=== PATIENT | female | born 1955 | race Caucasian/White ===

== ENCOUNTER 2017-03-09 21:17 | Outpatient (CLI) ==
[2017-03-09 21:36] LABS: BASOPHILS % (AUTO) 0.3 % (0.0-3.0); EOSINOPHILS # (AUTO) 0.1 K/ul (0.0-0.7); EOSINOPHILS % (AUTO) 1.1 % (0.0-7.0); HEMOGLOBIN 10.1 g/dl (12.0-16.0); IMMATURE GRANULOCYTE % (AUTO) 0.2 % (0.0-5.0); LYMPHOCYTES # (AUTO) 2.9 K/uL (0.60-3.4); LYMPHOCYTES % (AUTO) 45.2 (10.0-50.0); MEAN CORPUSCULAR HGB CONC 32.6 (31.8-35.4); MEAN CORPUSCULAR VOLUME 98.1 fl (81.0-99.0); MONOCYTES # (AUTO) 0.4 K/uL (0.4-2.0); NEUTROPHILS % (AUTO) 47.2; PLATELET COUNT 284 10^3/uL (140-440); RED BLOOD COUNT 3.16 10^6/ul (4.20-5.40)
[2017-03-09 21:38] LABS: BILIRUBIN,URINE Negative (NEGATIVE); KETONES,URINE Negative (NEGATIVE); LEUKOCYTE ESTERASE ,URINE Trace (NEGATIVE); NITRITE,URINE Negative (NEGATIVE); PROTEIN,URINE 3+ (NEGATIVE); URINE, BLOOD 2+ (NEGATIVE)
[2017-03-09 21:44] LABS: ADD URINE MICROSCOPIC YES
[2017-03-09 21:47] LABS: BACTERIA,URINE TRACE (NOT PRESENT)
[2017-03-09 21:56] LABS: ALANINE AMINOTRANSFERASE 17 U/L (12-78); ALBUMIN 3.1 g/dL (3.4-5.0); ALBUMIN/GLOBULIN RATIO 0.84; ALKALINE PHOSPHATASE 70 U/L (53-141); ANION GAP 16.3; ASPARTATE AMINO TRANSFERASE 20 U/L (15-37); BILIRUBIN,TOTAL 0.34 mg/dL (0.00-1.20); BLOOD UREA NITROGEN 24 mg/dL (7-18); BUN/CREATININE RATIO 17.02; CALCIUM 9.2 mg/dL (8.2-10.2); CARBON DIOXIDE 24 mmol/L (23-31); CHLORIDE 102 mmol/L (98-107); CHOL/HDL RATIO 5.5 (4.5-5.5); CHOLESTEROL 257 mg/dL (0-200); CREATININE 1.41 mg/dL (0.60-1.30); GLUCOSE 100 mg/dL (82-115); HDL CHOLESTEROL 47 mg/dL (35-80); POTASSIUM 4.3 mmol/L (3.5-5.10); SODIUM 138 mmol/L (136-145); TOTAL PROTEIN 6.8 g/dL (5.8-8.1); TRIGLYCERIDES 456 mg/dL (30-150)
== END 2017-03-09 21:18 | disposition home or self-care (01) ==
LOC: LAB 21:17
PROVIDERS: ATTEND General Practice
DX: E55.9 Vitamin D deficiency, unspecified (principal); E78.5 Hyperlipidemia, unspecified; I10 Essential (primary) hypertension
CPT/HCPCS: 36415; 80053; 80061; 81001; 85025

== ENCOUNTER 2017-10-11 12:38 | Outpatient (CLI) | END 2017-10-11 12:39 | disposition home or self-care (01) | LOC: FCC-LAB 12:38 | PROVIDERS: ATTEND General Practice | DX: E78.5 Hyperlipidemia, unspecified (principal); I10 Essential (primary) hypertension; E55.9 Vitamin D deficiency, unspecified; D64.9 Anemia, unspecified; N18.3 Chronic kidney disease, stage 3 (moderate) | CPT/HCPCS: 36415; 80053; 80061; 81001; 85025 ==

== ENCOUNTER 2017-12-11 14:51 | Outpatient (CLI) | END 2017-12-11 14:52 | disposition home or self-care (01) | LOC: LAB 14:51 → CAR 14:52 | PROVIDERS: ATTEND General Practice | DX: R00.0 Tachycardia, unspecified (principal); I49.9 Cardiac arrhythmia, unspecified | CPT/HCPCS: 93005; 93010 ==

== ENCOUNTER 2018-01-25 06:35 | Outpatient (CLI) ==
--- NOTE | 2018-01-25 09:57 | ECHOSTRESS ---
Date of Exam: 01/25/18 Ordering Physician: DR. LACHELLE RASHEED Reason for Echo: SOB, FATIGUE, CAD, HEART VALVE DISEASE, STRESS TEST--NO ISCHEMIA M-Mode Normal Adult Results LV Dimensions Normal Adult Results AoV Opening excursions >1.6 LVEDD-base- 3.5-5.8 Ao root dimensions 2.0-3.7 LVESD-base- 3.1-4.6 L. Atrium dimensions 1.9-3.8 Post. Wall thickness 0.8-1.1 IV septum (thickness) 0.7-1.2 Post. Wall excursion 0.72-1.3 Septal motion Systolic motion R. Ventricular cavity 1.5-2.0 LVEF 60% Paradoxical septal wall motion 2-D: HYPOKINETIC LEFT VENTRICLE AT REST AND POST EXERCISE M-MODE: MV: AV: TV: PV: CHAMBER SIZE: WALL MOTION: HYPOKINETIC LEFT VENTRICLE AT REST AND POST EXERCISE PERICARDIUM: INTERPRETATION: 1. HYPOKINETIC LEFT VENTRICLE AT REST AND POST EXERCISE MTDD
--- NOTE | 2018-01-25 10:24 | STRESSMOD ---
Date of Test: 01/25/18 Ordering Physician: DR. LACHELLE RASHEED Occupation: HOUSEKEEPING Reason for Exam: SOB, FATIGUE, CAD, HEART VALVE DISEASE Smoking History: QUIT 7 YRS AGO Height: 62' Weight: 125 LBS Resting EKG: SINUS RHYTHM/ NO ACUTE CHANGES Current Medications: LISINOPRIL, CALCITRIOL, PRAVASTATIN, CARVEDILOL Target Heart Rate: 135/159 S-T SEGMENT STAGE MPH/GRADE HEART RATE BPM BLOOD PRESSURE mmhg RHYTHM +/- ELEVATION DEPRESSION SYMPTOMS,COMMENTS At Rest 68 136/90 SR X NONE 1 1.7/0% 104 156/80 SR X NONE 2 1.7/5% 3 1.7/10% 4 2.5/12% 5 3.4/14% Immediately After 110 SR X SHORT OF BREATH Minutes Post Exercise 4:00 75 SR X NO COMMENTS Minutes Post Exercise DURATION OF EXERCISE: 4:13 MAXIMUM HEART RATE REACHED: 110 REASON FOR TERMINATION: SHORT OF BREATH 99% OXYGEN SATURATION WITH EXERCISE ON ROOM AIR METS 3.6 INTERPRETATION: 1. NO EVIDENCE OF ISCHEMIA BY ST-T WAVE FROM HEART RATE 68 BPM TO 110 BPM 2. NO CHEST PAIN OR DISCOMFORT 3. NO ARRHYTHMIAS 4. BLOOD PRESSURE RESPONSE: NORMAL HYPOKINETIC LEFT VENTRICLE AT REST AND WITH EXERCISE MTDD
== END 2018-01-25 06:36 ==
LOC: CAR 06:35
PROVIDERS: ATTEND General Practice
DX: R06.02 Shortness of breath (principal); R53.83 Other fatigue; I08.0 Rheumatic disorders of both mitral and aortic valves; I34.0 Nonrheumatic mitral (valve) insufficiency; I25.10 Atherosclerotic heart disease of native coronary artery without angina pectoris; D64.9 Anemia, unspecified

== ENCOUNTER 2018-03-14 16:52 | Outpatient (CLI) | payer OTHER | END 2018-03-14 16:53 | disposition home or self-care (01) | LOC: AMBL 16:52 | PROVIDERS: ATTEND Internal Medicine | DX: M54.2 Cervicalgia (principal); M54.9 Dorsalgia, unspecified; R51 Headache; R10.9 Unspecified abdominal pain; R00.0 Tachycardia, unspecified; V89.2XXA Person injured in unspecified motor-vehicle accident, traffic, initial encounter ==

== ENCOUNTER 2018-03-27 12:35 | Outpatient (CLI) | END 2018-03-27 12:36 | disposition home or self-care (01) | LOC: LAB 12:35 | PROVIDERS: ATTEND Internal Medicine Nephrology | DX: N18.3 Chronic kidney disease, stage 3 (moderate) (principal) | CPT/HCPCS: 36415; 80053; 82043; 82728; 83540; 83550; 83970; 85027 ==

== ENCOUNTER 2018-05-09 16:20 | Outpatient (CLI) | END 2018-05-09 16:21 | disposition home or self-care (01) | LOC: RHC-LAB 16:20 | PROVIDERS: ATTEND General Practice | DX: E78.5 Hyperlipidemia, unspecified (principal); I10 Essential (primary) hypertension; R06.02 Shortness of breath | CPT/HCPCS: 36415; 83880; 85025 ==

== ENCOUNTER 2018-07-18 15:42 | Outpatient (CLI) | payer OTHER | END 2018-07-18 15:43 | disposition home or self-care (01) | LOC: RHC-LAB 15:42 | PROVIDERS: ATTEND General Practice | DX: R05 Cough (principal); R52 Pain, unspecified; R11.10 Vomiting, unspecified; R63.4 Abnormal weight loss | CPT/HCPCS: 87502; 87651 ==

== ENCOUNTER 2018-07-21 09:05 | Emergency (ER) ==
[2018-07-21 09:11] VITALS: BMI 21.2
--- NOTE | 2018-07-21 09:47 | ED.PDOC ---
General ED Provider: Dr. TRA GILBERT Chief Complaint: Nausea/Vomiting Stated Complaint: started with flu few days past,progressed to weakness,some dry cough.Low grade fever cont, Time Seen by Physician: 15:04 Mode of Arrival: Wheelchair Information Source: Patient Exam Limitations: No limitations [facility] Nursing and Triage Documentation Reviewed and Agree: Yes Does patient meet sepsis criteria?: No System Inflammatory Response Syndrome: Not Applicable Sepsis Protocol: For patient's 13 years and over: Temp is 96.8 and below OR 101 and greater Pulse >90 BPM Resp >20/minute Acutely Altered Mental Status Are patient's symptoms suggestive of a new infection, such as: -Pneumonia -Skin, Soft Tissue -Endocarditis -UTI -Bone, Joint Infection -Implantable Device -Acute Abdominal Infection -Wound Infection -Meningitis -Blood Stream Catheter Infection -Unknown Review of Systems - Review Of Systems Constitutional: Reports: No symptoms, Weakness Eyes: Reports: No symptoms Ears, Nose, Mouth, Throat: Reports: No symptoms Respiratory: Reports: No symptoms Cardiac: Reports: Other GI: Reports: Nausea : Reports: No symptoms Musculoskeletal: Reports: No symptoms Skin: Reports: No symptoms Neurological: Reports: No symptoms Endocrine: Reports: No symptoms Hematologic/Lymphatic: Reports: No symptoms All Other Systems: Reviewed and Negative Past Medical History - Past Medical History Previously Healthy: No Endocrine: Reports: None Cardiovascular: Reports: CHF Respiratory: Reports: COPD Hematological: Reports: None Gastrointestinal: Reports: None Genitourinary: Reports: None Neuro/Psych: Reports: None Musculoskeletal: Reports: None Cancer: Reports: None Last Menstrual Period: none - Surgical History General Surgical History: Reports: None, Cholecystectomy - Family History Family History: Reports: None - Social History Smoking Status: Never smoker Hx Substance Use: No Alcohol Screening: None - Immunizations Tetanus Shot up to Date: No Influenza Vaccine within 12 Months: No Pneumococcal Vaccine up to Date: No Physical Exam - Physical Exam Appearance: Thin Ill-appearing: Mild Pain Distress: None Eyes: JACOB ENT: Ears normal Neck: Supple Respiratory: Airway patent Cardiovascular: RRR GI/: Soft Musculoskeletal: Normal strength Skin: Warm, Dry Neurological: Sensation intact Psychiatric: Affect appropriate Re-Evaluation - Re-Evaluation Time of Re-Evaluation: 14:55 Status: Unchanged Vital Signs Stable: Yes Appearance: NAD Lungs: Clear Skin: Warm and Dry Neuro: Alert and Oriented X3 CV: RRR Critical Care Note - Critical Care Note Total Time (mins): 0 Course - Course Hematology/Chemistry: 07/21/18 10:22 07/21/18 10:22 Orders, Labs, Meds: Lab Review 07/21/18 07/21/18 07/21/18 10:22 10:22 10:22 WBC 6.80 RBC 3.36 L Hgb 10.8 L Hct 33.0 L MCV 98.2 MCH 32.1 H MCHC 32.7 RDW Coeff of Rick 11.6 Plt Count 176 Immature Gran % (Auto) 0.1 Neut % (Auto) 79.9 Lymph % (Auto) 15.3 Piatt % (Auto) 4.7 Eos % (Auto) 0.0 Baso % (Auto) 0.0 Immature Gran # (Auto) 0.0 Neut # (Auto) 5.4 Lymph # (Auto) 1.0 Piatt # (Auto) 0.3 L Eos # (Auto) 0.0 Baso # (Auto) 0.0 D-Dimer (Manual) 903.25 Sodium 137.3 Potassium 3.58 Chloride 100.8 Carbon Dioxide 22.6 Anion Gap 17.48 BUN 33.5 H Creatinine 2.62 H Estimated GFR (MDRD) 18.00 BUN/Creatinine Ratio 12.78 Glucose 108.7 H Calcium 8.93 Total Bilirubin 0.29 AST 36.6 H ALT 20.5 Alkaline Phosphatase 106.8 NT-Pro-B Natriuret Pep 5330.000 H Total Protein 7.13 Albumin 3.71 Globulin 3.42 Albumin/Globulin Ratio 1.08 Orders Category Date Time Status CBC W/ AUTO DIFF Stat LAB 07/21/18 10:22 Completed CMP [COMPREHENSIVE METABOLIC PANEL] Stat LAB 07/21/18 10:22 Completed D-DIMER Stat LAB 07/21/18 10:22 Completed NT-PROBNP Stat LAB 07/21/18 10:22 Completed UA [URINALYSIS C & S IF INDICATED] Stat LAB 07/21/18 10:07 Uncollected Hydrocodone Bit/Acetaminophen [[place] 5-325] MEDS 07/21/18 12:37 Discontinued 1 tab PO ONCE STA Ondansetron HCl/Pf [Zofran 4 mg/2 ml] MEDS 07/21/18 10:12 Discontinued 4 mg IVP ONCE STA Sodium Chloride 0.9% [Sodium Chloride] 1,000 ml MEDS 07/21/18 10:11 Active IV 30 mls/hr CHEST, 2 VIEWS PA & LAT Stat RADS 07/21/18 10:08 Completed Medications Generic Name Dose Route Start Last Admin Trade Name Gavin PRN Reason Stop Dose Admin Sodium Chloride 1,000 mls @ 30 mls/hr 07/21/18 10:11 07/21/18 10:21 Sodium Chloride IV 07/22/18 19:30 30 mls/hr .[id number] STA Administration Discontinued Medications Generic Name Dose Route Start Last Admin Trade Name Gavin PRN Reason Stop Dose Admin Hydrocodone Bitart/Acetaminophen 1 tab 07/21/18 12:37 07/21/18 12:58 [place] 5-325 PO 07/21/18 12:38 1 tab ONCE STA Administration Ondansetron HCl 4 mg 07/21/18 10:12 07/21/18 10:21 Zofran 4 Mg/2 Ml IVP 07/21/18 10:13 4 mg ONCE STA Administration Vital Signs: Temp Pulse Resp BP Pulse Ox 07/21/18 14:22 99.8 F H 106 H 18 120/85 96 07/21/18 09:07 99.2 F 104 H 20 108/77 97 Departure - Departure Time of Disposition: 14:55 Disposition: TSF SHORT-TRM HOSP Discharge Problem: Nausea Renal failure Qualifiers: Renal failure chronicity: acute on chronic Condition: Fair Pt referred to PMD for follow-up: No ([facility]) IPMP verified?: No Allergies/Adverse Reactions: Allergies Iodinated Contrast- Oral and IV Dye Adverse Reaction (Verified 07/21/18 09:12) Home Medications: Ambulatory Orders Calcitriol 0.25 mcg PO DAILY 02/09/18 Carvedilol [Coreg] 6.25 mg PO BID 02/09/18 Bumetanide 1 mg PO DAILY 07/12/18 Transfer Form Completed: Yes Disposition Discussed With: Patient, Family
[2018-07-21] MEDS ORDERED: SODIUM CHLORIDE 1,000 ML IV STA (10:11)
[2018-07-21] MEDS ORDERED: ZOFRAN 4 MG/2 ML IVP STA (10:12)
--- NOTE | 2018-07-21 10:40 | DI ---
EXAM: PA and lateral views of the chest HISTORY: Fever and chronic obstructive pulmonary disease COMPARISON: Chest Xray from 08/11/2015 FINDINGS: Lungs are clear with no lobar consolidation, failure, large effusion or significant atelec tasis. Cardiac and mediastinal silhouettes show no acute abnormality. No acute osseous or soft tiss ue abnormalities. IMPRESSION: No active disease.
[2018-07-21] MEDS ORDERED: NORCO 5-325 PO STA (12:37)
[2018-07-21 14:22] VITALS: BP 120/85; TEMP 99.8
== END 2018-07-21 15:27 | disposition short-term general hospital (02) ==
LOC: ED 09:05
DX: N17.9 Acute kidney failure, unspecified (principal); R11.2 Nausea with vomiting, unspecified; J11.1 Influenza due to unidentified influenza virus with other respiratory manifestations; R53.1 Weakness
CPT/HCPCS: 36415; 80053; 83880; 85025; 85379; 96374; 99285

== ENCOUNTER 2018-09-28 13:39 | Outpatient (CLI) | END 2018-09-28 13:40 | disposition home or self-care (01) | LOC: RHC-LAB 13:39 | PROVIDERS: ATTEND General Practice | DX: R79.81 Abnormal blood-gas level (principal); I10 Essential (primary) hypertension | CPT/HCPCS: 36415; 80053; 85025 ==